=== PATIENT | female | born 1985 | race Caucasian/White ===

== ENCOUNTER 2023-10-17 04:42 | Outpatient (CLI) | payer SELFPAY ==
[2023-10-17 14:37] LABS: Abs Immature Grans 0.04 10^3/uL (0.0-0.06); Absolute Basophil Count 0.05 10^3/uL (0.0-0.2); Absolute Eosinophil Count 0.15 10^3/uL (0.0-0.7); Absolute Lymphocyte Count 1.54 10^3/uL (1.2-3.4); Absolute Monocyte Count 0.61 10^3/uL (0.1-0.8); Basophils % 0.5; Eosinophils % 1.4; HCT 35.9 % (36.0-46.0); HGB 12.4 g/dL (11.2-15.7); Immature Grans % 0.4; Lymphocytes % 14.1; MCH 30.5 pg (27.0-33.0); MCHC 34.5 % (32.0-36.0); MCV 88 fL (80-95); MPV 9.5 fL (8.0-11.0); Monocytes % 5.6; Platelet Count 198 10^3/uL (130-400); RBC 4.07 10^6/uL (3.93-5.22); RDW-SD 45.1 fL; WBC 10.94 10^3/uL (4.4-10.8)
[2023-10-17 14:38] LABS: Absolute Neutrophil Count 8.53 10^3/uL (1.2-6.7)
[2023-10-18 09:45] LABS: Varicella IgG Antibody Positive (See Note)
[2023-10-18 11:13] LABS: Rubella IgG Ab (UVM) Equivocal (See Note)
== END 2023-10-17 04:43 | disposition home or self-care (01) ==
PROVIDERS: Visit Provider Advanced Practice Midwife
DX: Z34.91 Encounter for supervision of normal pregnancy, unspecified, first trimester
CPT/HCPCS: 36415; 86787; 86850; 86900; 86901; 85025; 86762

== ENCOUNTER 2024-01-23 05:31 | Outpatient (CLI) | payer MEDICAID, SELFPAY ==
[2024-01-23 12:46] LABS: Abs Immature Grans 0.08 10^3/uL (0.0-0.06); Absolute Basophil Count 0.03 10^3/uL (0.0-0.2); Absolute Eosinophil Count 0.16 10^3/uL (0.0-0.7); Absolute Lymphocyte Count 1.07 10^3/uL (1.2-3.4); Absolute Monocyte Count 0.69 10^3/uL (0.1-0.8); Absolute Neutrophil Count 7.42 10^3/uL (1.2-6.7); Basophils % 0.3; Eosinophils % 1.7; HCT 32.5 % (36.0-46.0); HGB 10.4 g/dL (11.2-15.7); Immature Grans % 0.8; Lymphocytes % 11.3; MCH 27.6 pg (27.0-33.0); MCV 86 fL (80-95); MPV 9.5 fL (8.0-11.0); Monocytes % 7.3; Neutrophils % 78.6; Platelet Count 165 10^3/uL (130-400); RBC 3.77 10^6/uL (3.93-5.22); RDW 13.2 % (11.7-14.6); RDW-SD 41.2 fL; WBC 9.45 10^3/uL (4.4-10.8)
[2024-01-23 13:04] LABS: Glucose,1 Hr (Glucola) 110 mg/dL (80-140)
== END 2024-01-23 05:32 | disposition home or self-care (01) ==
LOC: LBO 05:31
PROVIDERS: Visit Provider Obstetrics & Gynecology
DX: Z34.93 Encounter for supervision of normal pregnancy, unspecified, third trimester (principal); Z3A.31 31 weeks gestation of pregnancy
CPT/HCPCS: 36415; 82950; 85025

== ENCOUNTER → 2024-01-29 02:13 | Outpatient (CLI) | payer MEDICAID, SELFPAY ==
--- NOTE | 2024-01-29 07:00 | DI.US_ITS ---
Exam(s) US OB MAGDY WEIGHT EXAM: US OB MAGDY WEIGHT CLINICAL HISTORY: growth,advanced maternal age,O09.529. TECHNIQUE: Transabdominal obstetrical ultrasound was performed. COMPARISON: US ECHOCARDIOGRAM from 12/10/2023 FINDINGS: There is a single viable intrauterine gestation with cardiac activity identified-136 bpm The fetus is presently in cephalic position . Amniotic fluid: There is a normal amount of amniotic fluid with an MAGDY of 12.6cm. Placental location: The placenta is anterior grade 1,with no evidence of placenta previa. Dating parameters place this at approximately 30 weeks gestational age, implying RE of 06/2024. BPD measures 30 weeks and 4 days HC measures 29 weeks and 4 days AC measures 30 weeks and 2 days FL measures 29 weeks and 4 days Estimated weight is 1492 gm-3 pounds 5 ounces Fetus is at the 3rd percentile on the Hadlock scale. UMBILICAL CORD DOPPLER READINGS: DISTAL /MID /PLACENTAL/PROXIMAL PI 1.0/ 0.64/0.97 RI 0.68/ 0.48/0.62 S/D 3.1/ 1.9/ 2.7 IMPRESSION:: Viable intrauterine gestation, as described above. Fetus is only at the 3rd percentile on the Hadlock scale DATA REPOSITORY:
== END ==
PROVIDERS: Visit Provider Obstetrics & Gynecology
DX: O09.523 Supervision of elderly multigravida, third trimester (principal); O35.BXX0 Maternal care for other (suspected) fetal abnormality and damage, fetal cardiac anomalies, not applicable or unspecified; Z3A.31 31 weeks gestation of pregnancy
CPT/HCPCS: 76816

== ENCOUNTER 2024-01-29 09:51 | Outpatient (CLI) | payer MEDICAID, SELFPAY ==
[2024-01-29 10:01] VITALS: BP 118/57; PULSE 77; TEMP 37.1
[2024-01-29 10:27] VITALS: BP 118/57; PULSE 77
--- NOTE | 2024-01-29 11:02 | W.OBNST ---
Date of service: 01/29/24 Time of Service: 11:02 NST Evaluation Reason for NST Reasons for Nonstress Test: INTRA-UTERINE GROWTH RES Gestational Age Gestational Age in Weeks and Days: 32 Weeks and 0Days Test and Monitor Explained Test/Monitor Explained: Test Explained, Monitor Explained and Patient Verbalized Understanding Vital Signs Blood Pressure: 118/57 Pulse: 77 Temperature: 98.8 F NST Information Date on Monitor: 01/29/24 Time on Monitor: 09:55 Date off Monitor: 01/29/24 Time off Monitor: 10:26 Total Time on Monitor: 31 NST Interventions: PO Hydration NST Evaluation Patient States Movement: Present FHR Baseline: 135 Variability: Moderate 6-25 bpm Accelerations: 15x15 Decelerations: None NST Results: Reactive Note Ultrasound Done: N/A. NST Note Note: Patient was seen for ultrasound today with fetus at less than 3rd percentile. 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 Is at risk for growth restriction. NST performed today with heart rate baseline of 135, moderate variability, appropriate accelerations, category 1 strip. Precautions given. Kick counts discussed. Awaiting recommendations from [facility]. NST Reviewed and Verified by: Kayce Michaud
[2024-01-29 11:03] VITALS: BP 118/57; PULSE 77; TEMP 37.1
== END 2024-01-29 10:41 | disposition home or self-care (01) ==
LOC: BCD 09:52 → OBS 09:59
PROVIDERS: Visit Provider Obstetrics & Gynecology Gynecology
DX: O36.5930 Maternal care for other known or suspected poor fetal growth, third trimester, not applicable or unspecified (principal); Z3A.32 32 weeks gestation of pregnancy
CPT/HCPCS: 59025

== ENCOUNTER 2024-02-06 16:22 | Outpatient (CLI) | payer MEDICAID, SELFPAY ==
[2024-02-06 16:28] VITALS: BP 123/66; PULSE 86
[2024-02-06 16:48] VITALS: BP 123/66; PULSE 86; TEMP 36.6
--- NOTE | 2024-02-20 13:10 | PDOC.NST_ITS ---
Date of service: 02/20/24 Time of Service: 13:10 NST Evaluation Reason for NST Reasons for Nonstress Test: OTHER, SEE COMMENT Reason for NST Other: Cardiac Abnormality Gestational Age Gestational Age in Weeks and Days: 33 Weeks and 1Days Test and Monitor Explained Test/Monitor Explained: Test Explained, Monitor Explained and Patient Verbalized Understanding Vital Signs Blood Pressure: 123/66 Pulse: 86 Temperature: 97.9 F Urine Results Urine Protein: Negative Urine Ketones: Negative Urine Glucose: Negative Urine Blood: Negative NST Information Date on Monitor: 02/06/24 Time on Monitor: 16:27 Date off Monitor: 02/06/24 Time off Monitor: 16:48 Total Time on Monitor: 21 NST Interventions: Notify Provider Contraction Frequency: 0 NST Evaluation Patient States Movement: Present FHR Baseline: 140 Variability: Moderate 6-25 bpm Accelerations: 15x15 Decelerations: None NST Results: Reactive Note Ultrasound Done: N/A. NST Note Note: Hx of small for gestational age. NSTs at [facility]. Planning to transfer to [facility] for care in near future NST Reviewed and Verified by: Kayla Mccann
[2024-02-20 13:11] VITALS: BP 123/66; PULSE 86; TEMP 36.6
== END 2024-02-06 16:52 ==
LOC: BCD 16:23 → OBS 16:26
PROVIDERS: Visit Provider Obstetrics & Gynecology Gynecology
DX: O36.8330 Maternal care for abnormalities of the fetal heart rate or rhythm, third trimester, not applicable or unspecified (principal); Z3A.33 33 weeks gestation of pregnancy
CPT/HCPCS: 59025

== ENCOUNTER → 2024-02-18 02:28 | Outpatient (CLI) | payer MEDICAID, SELFPAY ==
--- NOTE | 2024-02-18 07:30 | DI.US_ITS ---
Exam(s) US OB BIOPHYSICAL PROFILE EXAM: US OB BIOPHYSICAL PROFILE CLINICAL HISTORY: BPP,growth, cardiac malformation,O35.BXXO TECHNIQUE: Ultrasound biophysical profile performed using standard protocol. COMPARISON: US US OB MAGDY WEIGHT from 01/29/2024 FINDINGS: ULTRASOUND BIOPHYSICAL PROFILE: Number of fetuses: One. position: Vertex. heart rate: 138 bpm. Placental grade: 1 Placental location: Anterior no evidence of previa. Amniotic fluid index: 9.6 cm. Single deepest pocket is 3.2 cm. BIOPHYSICAL PROFILE SCORE: breathin out of 2 movement: 2 out of 2 tone: 2 out of 2 Amniotic fluid: 2 out of 2 Overall biophysical profile score: 8 out of 8. IMPRESSION: Single live intrauterine gestation. Biophysical profile 8 out of 8. DATA REPOSITORY:
== END ==
PROVIDERS: Visit Provider Obstetrics & Gynecology
DX: O35.BXX0 Maternal care for other (suspected) fetal abnormality and damage, fetal cardiac anomalies, not applicable or unspecified (principal); Z3A.32 32 weeks gestation of pregnancy
CPT/HCPCS: 76815; 76819

== ENCOUNTER → 2024-02-26 02:23 | Outpatient (CLI) | payer MEDICAID, SELFPAY ==
--- NOTE | 2024-02-26 06:45 | DI.US_ITS ---
Exam(s) US OB BIOPHYSICAL PROFILE EXAM: US OB BIOPHYSICAL PROFILE CLINICAL HISTORY: BPP, cardiac malformation, O35.BXX0 TECHNIQUE: Ultrasound biophysical profile performed using standard protocol. COMPARISON: No exams were available for comparison FINDINGS: ULTRASOUND BIOPHYSICAL PROFILE: Number of fetuses: One. position: Vertex. heart rate: 135 bpm. Placental grade: 1-2 Placental location: Anterior no evidence of previa. Amniotic fluid index: 7.6 cm, lower limit of normal. Single deepest pocket is 3.3 cm. BIOPHYSICAL PROFILE SCORE: breathin out of 2 movement: 2 out of 2 tone: 2 out of 2 Amniotic fluid: 2 out of 2 Overall biophysical profile score: 8 out of 8. IMPRESSION: Single live intrauterine gestation. MAGDY near lower limit of normal. Biophysical profile 8 out of 8. DATA REPOSITORY:
== END ==
PROVIDERS: Visit Provider Obstetrics & Gynecology
DX: O35.BXX0 Maternal care for other (suspected) fetal abnormality and damage, fetal cardiac anomalies, not applicable or unspecified (principal); Z3A.33 33 weeks gestation of pregnancy
CPT/HCPCS: 76815; 76819